=== PATIENT | female | born 1995 | race Hispanic/Latino ===

== ENCOUNTER 2018-02-21 15:37 | Emergency (ER) | payer BC ==
[2018-02-21 16:07] VITALS: BP 97/63; PULSE 82; RESP 19; TEMP 98; O2SAT 99
[2018-02-21] MEDS ORDERED: Sodium Chloride 0.9% 1,000 ML IV STA (16:45)
--- NOTE | 2018-02-21 16:47 | ED PDOC ---
Syncope/Near Syncope/Dizziness Time Seen by Provider: 02/21/18 16:45 Chief Complaint (Nursing): Dizziness/Lightheaded Chief Complaint (Provider): HEADACHE/DIZZY History Per: Patient (22 Y/O FEMALE WITH INTERMITTENT SHARP HEADACHES ASSOCIATED WITH BLURRY VISION X 4 -5 DAYS. NO LOC. DENIES ANY VOMITING/ DIARRHEA. NO H/O MIGRAINES. SEEN BY PMD AND GIVEN RX FOR BLOODWORK. PATIENT WOULD LIKE MORE URGENT EVALUATION.) Past Medical History Reviewed: Historical Data, Nursing Documentation, Vital Signs Vital Signs: Last Vital Signs Temp 98.0 F 02/21/18 16:03 Pulse 82 02/21/18 16:03 Resp 19 02/21/18 16:03 BP 97/63 L 02/21/18 16:03 Pulse Ox 99 02/21/18 16:03 - Family History Family History: States: No Known Family Hx - Allergies Allergies/Adverse Reactions: Allergies Allergy/AdvReac Type Severity Reaction Status Date / Time No Known Allergies Allergy Verified 02/21/18 16:03 Review of Systems ROS Statement: Except As Marked, All Systems Reviewed And Found Negative Physical Exam - Reviewed Nursing Documentation Reviewed: Yes Vital Signs Reviewed: Yes - Physical Exam Appears: Positive for: Well, Non-toxic, No Acute Distress Head Exam: Positive for: ATRAUMATIC, NORMAL INSPECTION, NORMOCEPHALIC Skin: Positive for: Normal Color, Warm, DRY Eye Exam: Positive for: EOMI, Normal appearance, PERRL ENT: Positive for: Normal ENT Inspection Neck: Positive for: Normal, Painless ROM Cardiovascular/Chest: Positive for: Regular Rate, Rhythm Respiratory: Positive for: CNT, Normal Breath Sounds Gastrointestinal/Abdominal: Positive for: Normal Exam, Soft Back: Positive for: Normal Inspection Extremity: Positive for: Normal ROM Neurologic/Psych: Positive for: Alert, Oriented - Laboratory Results Result Diagrams: 02/21/18 17:34 02/21/18 19:11 Urine POC: Negative - ECG O2 Sat by Pulse Oximetry: 99 - Progress ED Course And Treament: NS 1 LITER 500 ML PER HOUR PATIENT HEADACHE FREE IN EMERGENCY DEPARTMENT. D/W HER MRI VS CT OF BRAIN FOR EVALUATION OF HEADACHES. SHE WILL F/U OUTPATIENT WITH NEUROLOGY AND PMD TO OBTAIN MRI EVALUATION OF HEADACHES. Disposition - Clinical Impression Clinical Impression: Headache - Patient ED Disposition Is Patient to be Admitted: No - Disposition Referrals: Non [facility] Provider, [Primary Care Provider] - Conchita Washington MD [Medical Doctor] - Disposition: Routine/Home Disposition Time: 20:18 Condition: FAIR Instructions: Headache, Adult (DC) Forms: [employer] ([place]), [facility] School/Work Excuse
[2018-02-21 17:47] LABS: VENOUS BLOOD GAS BASE EXCESS 3.3 mmol/L (0.0-2.0); VENOUS BLOOD GAS PCO2 48 mmHg (40-60); VENOUS BLOOD GAS PO2 28 mm/Hg (30-55); VENOUS BLOOD PH 7.39 (7.32-7.43)
[2018-02-21 18:05] LABS: BASO % 0.3 % (0.0-2.0); EOS # 0.1 K/uL (0.0-0.7); EOS % 0.8 % (0.0-4.0); HEMOGLOBIN 12.6 g/dL (12.0-16.0); LYMPH # 2.6 K/uL (1.0-4.3); LYMPH % 30.8 % (20.0-40.0); MEAN CELL VOLUME 93.5 fl (81.0-99.0); MEAN CORPUSCULAR HEMOGLOBIN 31.1 pg (27.0-31.0); MEAN CORPUSCULAR HGB CONC 33.3 g/dL (33.0-37.0); MEAN PLATELET VOLUME 9.2 fl (7.2-11.7); MONO # 0.7 K/uL (0.0-0.8); MONO % 7.9 % (0.0-10.0); NEUT % 60.2 % (50.0-75.0); NRBC % 0.1 % (0.0-0.0); RBC 4.06 Mil/uL (3.80-5.20); WHITE BLOOD COUNT 8.3 K/uL (4.8-10.8)
[2018-02-21 19:29] LABS: BLOOD UREA NITROGEN 9 mg/dl (7-17); CALCIUM 9.5 mg/dL (8.4-10.2); GFR AFRICAN-AMERICAN > 60; GFR NON-AFRICAN AMERICAN > 60
== END 2018-02-21 20:38 | disposition home or self-care (01) ==
LOC: H.ER 15:37 → SUPCPDRO 15:37 → H.ER 20:38
DX: R51 Headache (principal)
CPT/HCPCS: 80048; 81025; 82803; 83735; 84443; 85025; 96360; 96361; 99284; J7030